=== PATIENT | female | born 1955 | race Caucasian/White ===

== ENCOUNTER 2021-05-01 16:46 | Inpatient (IN) | payer MEDICAID, SELFPAY ==
[2021-05-01 16:49] VITALS: BP 129/55; PULSE 70; RESP 17; TEMP 36.7; O2SAT 98; BMI 21.6
--- NOTE | 2021-05-01 17:40 | ED.VIS.FALL ---
HPI HPI - Fall History of Present Illness Chief Complaint: Fall Informant: patient Narrative Narrative: Brought in by EMS mechanical fall left hip injury shortly prior to arrival. Tripped over a space heater and a coffee table trying to catch her balance. No head injuries. No history of fractures. Patient has been laying on her right side for comfort. She is brought in like this on a vacuum carrier. Pain with movement of the leg. No paresthesias. No anticoagulation medicines. Patient only on thyroid medications. PFSH PFSH Medical History Hypothyroidism Tobacco use Home Medications calcium 600 mg PO DAILY 05/01/21 [History Last Taken 05/01/21] levothyroxine 50 mcg PO DAILY 05/01/21 [History Last Taken 05/01/21] Allergy/AdvReac Type Severity Reaction Status Date / Time No Known Allergies Allergy Verified 05/01/21 16:48 Family History (Updated 05/01/21 @ 21:[address] Celine Huntley MD) Mother Myasthenia gravis age 51 secondary to MG complications. Father Cancer Hx prostate CA. Surgical History S/P cholecystectomy Social History (Updated 05/01/21 @ 21:[address] Celine Huntley MD) household members: spouse and children Smoking Status: Current every day smoker tobacco type: cigarettes alcohol intake: never substance use type: does not use ROS ROS ED Constitutional Constitutional ED: Denies chills, fever(s) or sweats Eyes Eyes: Denies change in vision ENT ENT ED: Denies dysphagia or sore throat Cardiovascular Cardiovascular: Denies chest pain, leg edema, palpitations or racing heartbeat Respiratory/Chest Respiratory/Chest: Denies cough, dyspnea or dyspnea on exertion Gastrointestinal Gastrointestinal: Denies abdominal pain, diarrhea, nausea or vomiting Genitourinary Genitourinary ED: Denies dysuria, hematuria or urinary frequency Musculoskeletal Musculoskeletal: Reports other Details: Left hip pain ; Denies back pain, extremity pain or neck pain Integumentary Denies rash or wounds Neurologic Neurologic: Denies headache(s), paresthesias or weakness EXAM Physical Exam Const Vital Signs: 05/01/21 16:49 05/01/21 17:06 05/01/21 20:21 Temperature 98.0 F 98.0 F Temperature Source Oral Oral Pulse Rate 70 73 Respiratory Rate 17 18 Respiratory Effort Normal Respiratory Depth Normal Respiratory Pattern Normal Blood Pressure 129/55 H 133/63 H Blood Pressure Mean 79 86 Pulse Ox 98 73 Oxygen Delivery Method Room Air Room Air Room Air Positive well nourished and well developed Constitutional Narrative: Laying on her right side for comfort. GCS 15. General Appearance ED: well developed and NAD HEENT Reports moist mucous membranes normocephalic and atraumatic Eyes PERRL, EOMs intact bilaterally and conjunctivae normal General Eye ED: Yes normal appearance of both eyes Neck no lymphadenopathy and supple General: Negative for tenderness Chest Wall Chest: Negative for tenderness Resp normal respiratory effort and normal air movement Effort and Inspection: symmetric chest movement; Negative for respiratory distress Cardio regular rate, regular rhythm and no murmurs Peripheral Pulses: pulses 2+ throughout GI normal to inspection, nondistended, normoactive bowel sounds and non-tender Palpation: Negative for guarding or rebound tenderness present Back/Spine no CVA tenderness and no thoracic nor lumbar tenderness Extremity Extremity Narrative: Both legs slight flexed position laying on her right side. Any movement of the left leg elicits pain. Unable to evaluate for shortening or rotation due to her positioning at this time. Pulses were intact distally. No pain of the upper extremities bilaterally. General Extremety ED: Negative for edema or tenderness General Extremity: Negative for edema Neuro oriented x3 and no sensory deficits noted Sensorium / Orientation: awake and alert Skin no rashes or lesions noted and no wounds MDM MDM MDM Narrative Medical decision making narrative: Patient was taken off the vacuum splint, she is kept on the right side for position of comfort. IV will be established, will give pain medications, discussed will send for x-ray will need to lay on her back for evaluation for concerns for fracture of the left hip. Left hip x-ray reviewed by myself and read by radiology intertrochanteric fracture. Chest x-ray preop clearance obtained shows no acute process. Labs are stable treated with additional fentanyl for pain control. I did update orthopedics Dr. Martinez will plan for surgery tomorrow. Discussed with hospitalist Dr. Huntley for admission. Lab Data Attestation: I reviewed the patient's lab results. Labs: Laboratory Results - last 24 hr 05/01/21 05/01/21 05/01/21 17:58 17:58 17:58 WBC 12.6 H RBC 4.36 Hgb 14.0 Hct 41.4 MCV 95.0 MCH 32.1 H MCHC 33.8 RDW Std Deviation 47.8 H RDW Coeff of Danelle 13.5 Plt Count 293 MPV 9.5 Immature Gran % (Auto) 0.300 Neut % (Auto) 78.5 H Lymph % (Auto) 14.9 L [place] % (Auto) 4.4 Eos % (Auto) 1.2 Baso % (Auto) 0.7 Absolute Neuts (auto) 9.9 H Absolute Lymphs (auto) 1.88 Nucleated RBC % 0 PT 12.3 INR 1.0 APTT 22.9 L Sodium 140 Potassium 4.0 Chloride 107 Carbon Dioxide 29.0 Anion Gap 4 L BUN 13 Creatinine 1.03 H Estim Creat Clear Calc 48.35 Est GFR (MDRD) Af Amer 69 Est GFR (MDRD) Non-Af 57 L BUN/Creatinine Ratio 12.6 Glucose 123 H Calcium 8.6 Blood Type Antibody Screen 05/01/21 17:58 WBC RBC Hgb Hct MCV MCH MCHC RDW Std Deviation RDW Coeff of Danelle Plt Count MPV Immature Gran % (Auto) Neut % (Auto) Lymph % (Auto) [place] % (Auto) Eos % (Auto) Baso % (Auto) Absolute Neuts (auto) Absolute Lymphs (auto) Nucleated RBC % PT INR APTT Sodium Potassium Chloride Carbon Dioxide Anion Gap BUN Creatinine Estim Creat Clear Calc Est GFR (MDRD) Af Amer Est GFR (MDRD) Non-Af BUN/Creatinine Ratio Glucose Calcium Blood Type O POSITIVE Antibody Screen NEGATIVE Radiography Diagnostic Testing: Clinical Impression(s) from Imaging Studies Hip/Pelvis X-Ray 05/01/21 18:55 IMPRESSION: Left intratrochanteric fracture. No dislocation Electronically Signed: Diaz Hoyt MD at 19:29 EST , Chest X-Ray 05/01/21 19:04 IMPRESSION: There are no acute findings. Electronically Signed: Diaz Hoyt MD at 19:28 EST , EKG Initial EKG: Attestation: I personally reviewed and interpreted this EKG as follows: Comments: Sinus rate of 67, PACs noted. No ST or T wave changes. Discharge Plan Dx/Rx/DC Orders Clinical Impression: Hip fracture, left Disposition Disposition: Acute Care Hospital [facility] Discharge Date/Time: 05/01/21 20:26
[2021-05-01 18:08] LABS: Absolute Lymphocyte Count 1.88 X10^3/uL (0.83-4.51); Absolute Neutrophil Count 9.9 X10^3/uL (2.0-7.7); Basophil# 0.09 X10^3/uL; Basophil% 0.7 % (0-1); Eosinophil# 0.15 X10^3/uL; Eosinophils% 1.2 % (0-5); Hematocrit 41.4 % (37-47); Lymphocyte # 1.88 X10^3/ul (0.83-4.51); Lymphocyte % 14.9 % (19-41); Mean Corp Hgb Conc 33.8 g/dL (32-36); Mean Corpuscular Hgb 32.1 pg (27.0-32.0); Mean Platelet Vol. 9.5 fl (6.2-12.0); Monocyte# 0.55 X10^3/uL; Monocyte% 4.4 % (0-10); NRBC Flagged by Analyzer 0 % (0-5); Neutrophil # 9.88 X10^3/uL (2.7-7.7); Neutrophil % 78.5 % (47-70); Platelet Count 293 K/mm3 (150-450); RBC Distribution Width CV 13.5 % (11.6-14.6); RBC Distribution Width SD 47.8 fl (35.1-43.9); Red Blood Count 4.36 M/mm3 (4.2-5.4); White Blood Count 12.6 K/mm3 (4.4-11.0)
[2021-05-01] MEDS: fentaNYL 100 MCG/2 ML Ampul 25 MCG IV (18:13)
[2021-05-01] MEDS: Ondansetron 4 MG/2 ML Vial IV (18:13)
[2021-05-01 18:15] LABS: Prothrombin Time (Protime)PT. 12.3 SECONDS (11.7-14.9)
[2021-05-01 18:16] LABS: Partial Thromboplast Time 22.9 Seconds (24.1-36.2)
[2021-05-01 18:21] LABS: Anion Gap 4 (5-15); BUN 13 mg/dL (7-18); BUN/Creat Ratio 12.6 RATIO (10-20); Calcium,Total 8.6 mg/dL (8.5-10.1); Chloride 107 mmol/L (98-107); Creatinine, Serum 1.03 mg/dL (0.55-1.02); EST Glomerular Filtration Rate 57 mL/min (>60); Est Glom Filt Rate - Afr Amer 69 mL/min (>60); Estimated Creatinine Clearance 48.35 ml/min; Glucose 123 mg/dL (74-106); Sodium Level 140 mmol/L (136-145)
--- NOTE | 2021-05-01 18:55 | RAD_ITS ---
STUDY: X-RAY - PELVIS AND LEFT HIP REASON FOR EXAM: Female, 65 years old. Technologist Notes fall, left hip pain, images taken with patient''s leg bent, patient was unable to straighten leg due to pain injury TECHNIQUE: XR Hip Unilateral with Pelvis when performed; 2-3 Views COMPARISON: None. FINDINGS: There is a non-specific bowel gas pattern. Normal visualized soft tissue structures. There are multiple calcified phleboliths. There are degenerative changes of the lumbar spine. Normal bilateral iliac wings, sacroiliac joints and visualized sacrum. Normal bilateral superior and inferior pubic rami. Normal pubic symphysis. Normal bilateral ischial tuberosities. Normal visualized femoral head. Left intratrochanteric fracture. Medial displacement of the lesser trochanter. Normal acetabulum. Normal hip joint. RAD/HIP, UNI W/ Pelvis 2-3 Views IMPRESSION: Left intratrochanteric fracture. No dislocation Electronically Signed: Diaz Hoty MD at 19:29 EST ,
--- NOTE | 2021-05-01 19:02 | EKG12_ITS ---
Test Reason : FALL Blood Pressure : / mmHG Vent. Rate : 067 BPM Atrial Rate : 067 BPM P-R Int : 120 ms QRS Dur : 090 ms QT Int : 412 ms P-R-T Axes : 074 068 062 degrees QTc Int : 435 ms Sinus rhythm with Premature atrial complexes Otherwise normal ECG When compared with ECG of 18-JUN-2000 05:42, Premature atrial complexes are now Present T wave inversion now evident in Lateral leads Confirmed by NICHOLAS PETERSON, TIGIST ([id number]), television news video editor NANETTE BAL ([id number]) on 05/05/2021 10:02:37 A M Referred By: MONIQUE Confirmed By:RAMÍREZ PETERSON MD
--- NOTE | 2021-05-01 19:04 | RAD_ITS ---
STUDY: XR Chest 1 View 05/01/2021 6:50 PM REASON FOR EXAM: Female, 65 years old. PRE OP COMPARISON: None TECHNIQUE: XR Chest 1 View FINDINGS: There is no demonstrated pleural abnormality. Normal heart size. Normal mediastinum. Normal sherie. Prominent appearing increased interstitial lung markings. Normal visualized pulmonary arteries. There is atherosclerotic calcification of the aortic arch with tortuosity. There are diffuse degenerative changes of the visualized thoracic spine. There is degenerative osteoarthritis of the bilateral shoulders. There is no demonstrated abnormality of the visualized soft tissue structures of the upper abdomen. RAD/Chest 1 View IMPRESSION: There are no acute findings. Electronically Signed: Diaz Hoyt MD at 19:28 EST ,
[2021-05-01] MEDS: fentaNYL 100 MCG/2 ML Ampul 50 MCG IV ×2 (19:35→20:19)
[2021-05-01 20:21] VITALS: BP 133/63; PULSE 73; RESP 18; TEMP 36.7; O2SAT 73
--- NOTE | 2021-05-01 20:39 | HP.PCM.HOS_ITS ---
HPI - General General Date of Admission: 05/01/21 Date of Service: 05/01/21 Chief Complaint: Hip pain, fall. HPI Narrative The patient is a 65 y/o F w/ PMHx: Hypothyroidism, Tobacco use who presents to the [facility] ED on 05/01/21 with history of unfortunate mechanical fall, tripping over a space heater and falling over a table landing very firmly onto the left side onto her left hip with intractable pain, debility, shortening and malrotation following prompting eventual ED evaluation. Patient notes the pain is sharp, 10 out of 10 in severity, worse with any movement. Work-up in the ED included T 98, heart rate 70, BP 129/55, respiratory rate 17, 98% on room air, CBC with WC 12.6, hemoglobin 14, platelet 293 with mild left shift, unremarkable coags, BMP with BUN/creatinine 13/1.03, glucose 123 otherwise not marked appearing, type an d screen performed per ED physician, rapid Covid antigen negative, chest x-ray with no acute cardiopulmonary findings, plain film of the left hip and pelvis with a left intertrochanteric fracture with no dislocation evident, EKG with sinus rhythm with no acute evidence of ischemia. In the ED patient ministered fentanyl as well as Zofran therapy. ED physician did discuss case with orthopedic surgeon Dr. Martinez who noted intention for operative intervention in AM. [facility] Medical History Hypothyroidism Tobacco use Home Medications calcium 600 mg PO DAILY 05/01/21 [History Last Taken Unknown] levothyroxine 50 mcg PO DAILY 05/01/21 [History Last Taken Unknown] Allergy/AdvReac Type Severity Reaction Status Date / Time No Known Allergies Allergy Verified 05/01/21 16:48 Family History (Updated 05/01/21 @ 21:[address] Celine Huntley MD) Mother Myasthenia gravis age 51 secondary to MG complications. Father Cancer Hx prostate CA. Surgical History (Updated 05/01/21 @ 21:[address] Celine Huntley MD) S/P cholecystectomy Social History (Updated 05/01/21 @ 21:[address] Celine Huntley MD) household members: spouse and children Smoking Status: Current every day smoker tobacco type: cigarettes alcohol intake: never substance use type: does not use ROS ROS Narrative Admission Review of Systems: CONSTITUTIONAL: No weight loss, fever, chills, + weakness or fatigue. HEENT: Eyes: No visual loss, blurred vision, double vision or yellow sclerae. Ears, Nose, Throat: No hearing loss, sneezing, congestion, runny nose or sore throat. SKIN: No rash or itching, lesions, wounds. CARDIOVASCULAR: No chest pain, chest pressure or chest discomfort, palpitations, edema, orthopnea, syncopal events. RESPIRATORY: No shortness of breath, cough or sputum, wheezing, hemoptysis. GASTROINTESTINAL: No anorexia, nausea, vomiting or diarrhea, abdominal pain, melena, BRBPR. GENITOURINARY: No dysuria, frequency, urgency or retention. NEUROLOGICAL: No headache, dizziness, syncope, paralysis, ataxia, numbness or tingling in the extremities, focal weakness, change in bowel or bladder control, seizure. MUSCULOSKELETAL: + muscle, back pain, joint pain or stiffness. HEMATOLOGIC: No anemia, bleeding or bruising. LYMPHATICS: No enlarged nodes. No history of splenectomy. PSYCHIATRIC: No history of depression or anxiety. ENDOCRINOLOGIC: No reports of sweating, cold or heat intolerance. No polyuria or polydipsia. ALLERGIES: No history of asthma, hives, eczema or rhinitis. Vital Signs Vital Signs Vital Signs: 05/01/21 16:49 05/01/21 17:06 05/01/21 20:21 Temperature 98.0 F 98.0 F Temperature Source Oral Oral Pulse Rate 70 73 Respiratory Rate 17 18 Respiratory Effort Normal Respiratory Depth Normal Respiratory Pattern Normal Blood Pressure 129/55 H 133/63 H Blood Pressure Mean 79 86 Pulse Ox 98 73 Oxygen Delivery Method Room Air Room Air Room Air Weight Weight: 130 lb Body Mass Index (BMI) 21.6 Physical Exam Narrative Physical Examination: General: Awake, alert, oriented x 3 and cooperative, laying in the ED bed, uncomfortable appearing, rating pain to the left hip 10 out of 10. Skin: Normal color, normal turgor, no icterus, no cyanosis. HEENT: AT/NC, EOMI, PERRLA, mildly dry MM, no carotid bruits or JVD noted. Lungs: CTA bilaterally, moderate effort, mild decrease BL bases, no rales, ronchi or wheezing. Heart: Regular rate and rhythm; no gallop, rub audible. Abdomen: Soft, NTTP, ND, normal BS, no HSM. Extremities: No cyanosis, no clubbing, no edema, status post mechanical fall with left hip fracture, shortened, externally rotated, peripheral pulses intact. Neurological: Patient awake, alert, oriented as noted, cognitive function intact; pupils equally reactive to light and accommodation, cranial nerves II- XII grossly normal, limited movement of extremities especially left lower extremity given recent fall with left hip fracture, strength accordingly severely globally decreased. Psychiatric: Affect appears uncomfortable, no acute evidence of depressive or anxiety feelings. Results Lab / Micro Data Result Diagrams: 05/01/21 17:58 05/01/21 17:58 Labs: Laboratory Results - last 24 hr 05/01/21 17:58: WBC 12.6 H, RBC 4.36, Hgb 14.0, Hct 41.4, MCV 95.0, MCH 32.1 H, MCHC 33.8, RDW Std Deviation 47.8 H, RDW Coeff of Danelle 13.5, Plt Count 293, MPV 9.5, Immature Gran % (Auto) 0.300, Neut % (Auto) 78.5 H, Lymph % (Auto) 14.9 L, [place] % (Auto) 4.4, Eos % (Auto) 1.2, Baso % (Auto) 0.7, Absolute Neuts (auto) 9.9 H, Absolute Lymphs (auto) 1.88, Nucleated RBC % 0 05/01/21 17:58: PT 12.3, INR 1.0, APTT 22.9 L 05/01/21 17:58: Sodium 140, Potassium 4.0, Chloride 107, Carbon Dioxide 29.0, Anion Gap 4 L, BUN 13, Creatinine 1.03 H, Estim Creat Clear Calc 48.35, Est GFR (MDRD) Af Amer 69, Est GFR (MDRD) Non-Af 57 L, BUN/Creatinine Ratio 12.6, Glucose 123 H, Calcium 8.6 05/01/21 17:58: Blood Type O POSITIVE, Antibody Screen NEGATIVE Micro: Microbiology 05/01/21 19:20 Nasal Secretion SARS-CoV-2 Antigen (Rapid) - Final Radiology Impression Hip/Pelvis X-Ray 05/01/21 18:55 IMPRESSION: Left intratrochanteric fracture. No dislocation Electronically Signed: Diaz Hoyt MD at 19:29 EST , Chest X-Ray 05/01/21 19:04 IMPRESSION: There are no acute findings. Electronically Signed: Diaz Hoyt MD at 19:28 EST , Assessment & Plan Assessment/Plan (1) Hip fracture, left: QUALIFIERS: Encounter type: initial encounter Fracture type: closed Qualified Code(s): S72.002A - Fracture of unspecified part of neck of left femur, initial encounter for closed fracture PLAN: The patient is a 65 y/o F w/ PMHx: Hypothyroidism, Tobacco use who presents to the [facility] ED on 05/01/21 with history of unfortunate mechanical fall, tripping over a space heater and falling over a table landing very firmly onto the left side onto her left hip with intractable pain, debility, shortening and malrotation following prompting eventual ED evaluation. #1. General debility, L hip pain s/p mechanical fall w/ left intertrochanteric hip fracture: Orthopedic surgery consulted from ED. Will admit to MS, maintain NPO after midnight, continue gentle IVFs, cardenas placement, monitor I/Os, frequent positioning, fall precautions, pain, anti-emetic regimen. PT/OT following operative intervention. CM consulted for discharge planning. Per NSQIP surgical risk calculator patient is low risk and agree with proceeding to operative intervention in a.m. #2. Hypothyroidism: Continue home synthroid regimen. #3. Tobacco Abuse: Encouraged cessation, inpatient consultation per RT, NR if desired. #4. DVT prophylaxis: SCDs, defer chemoprophylaxis for planned a.m. orthopedic s urgery. #5. CODE STATUS: Patient healthcare power of supervisor wash house is her and secondary is her son, living will in place. Full code. Charges/Coding Visit Charges Inpatient E&M: 82843 Init Hosp L2
[2021-05-01 20:44] VITALS: BMI 21.1
[2021-05-01] MEDS: Morphine 2 MG/ML Syringe IV ×2 (21:23→22:10)
[2021-05-01] MEDS: 0.9% Normal Saline 1,000 ML 100 ML IV (21:23)
[2021-05-01 21:45] VITALS: BP 137/65; PULSE 65; RESP 20; TEMP 36.3; O2SAT 96
--- NOTE | 2021-05-01 22:50 | PCS.PANDOC ---
PANDEMIC DOCUMENTATION INITIATED: Date: 05/01/21 Time: 2199
[2021-05-01 22:52] VITALS: O2SAT 96
[2021-05-02] VITALS (13 sets, daily range): BP systolic 93–136; BP diastolic 49–70; PULSE 60–84; RESP 14–18; TEMP 36.2–36.6; O2SAT 89–99; BMI 21.1
[2021-05-02] MEDS: Morphine 2 MG/ML Syringe IV ×3 (03:27→10:57)
[2021-05-02 05:55] LABS: Absolute Lymphocyte Count 1.59 X10^3/uL (0.83-4.51); Absolute Neutrophil Count 10.3 X10^3/uL (2.0-7.7); Basophil# 0.06 X10^3/uL; Basophil% 0.5 % (0-1); Eosinophil# 0.01 X10^3/uL; Eosinophils% 0.1 % (0-5); Hematocrit 43.2 % (37-47); Hemoglobin 14.3 g/dL (12.0-15.0); Lymphocyte # 1.59 X10^3/ul (0.83-4.51); Lymphocyte % 12.6 % (19-41); Mean Corp Hgb Conc 33.1 g/dL (32-36); Mean Corpuscular Hgb 31.3 pg (27.0-32.0); Mean Corpuscular Volume 94.5 fL (81-99); Mean Platelet Vol. 9.5 fl (6.2-12.0); Monocyte# 0.64 X10^3/uL; Monocyte% 5.1 % (0-10); NRBC Flagged by Analyzer 0 % (0-5); Neutrophil # 10.27 X10^3/uL (2.7-7.7); Neutrophil % 81.4 % (47-70); Platelet Count 270 K/mm3 (150-450); RBC Distribution Width CV 13.4 % (11.6-14.6); RBC Distribution Width SD 47.5 fl (35.1-43.9); Red Blood Count 4.57 M/mm3 (4.2-5.4); White Blood Count 12.6 K/mm3 (4.4-11.0)
[2021-05-02 06:41] LABS: ALB/GLOB Ratio 1.1 RATIO (0.9-2.4); AST(SGOT) 22 U/L (15-37); Alanine Aminotransfer ALT/SGPT 18 U/L (13-56); Albumin, Serum 3.3 g/dL (3.2-5.0); Alkaline Phosphatase 65 U/L (45-117); Anion Gap 4 (5-15); BUN 10 mg/dL (7-18); BUN/Creat Ratio 12.6 RATIO (10-20); Calcium,Total 8.3 mg/dL (8.5-10.1); Chloride 110 mmol/L (98-107); Creatinine, Serum 0.79 mg/dL (0.55-1.02); EST Glomerular Filtration Rate 77 mL/min (>60); Est Glom Filt Rate - Afr Amer 93 mL/min (>60); Globulin 2.9 g/dL (2.2-4.2); Glucose 113 mg/dL (74-106); Potassium 4.1 mmol/L (3.5-5.1); Protein, Total 6.2 g/dL (6.4-8.2); Sodium Level 138 mmol/L (136-145)
[2021-05-02] MEDS: 0.9% Normal Saline 1,000 ML 100 ML IV ×2 (07:26→18:39)
[2021-05-02] MEDS: 0.9% Saline Lock 10 ML Syringe IV ×2 (07:48→22:09)
--- NOTE | 2021-05-02 07:52 | PN.HOSP_ITS ---
Subjective Subjective Follow-up for disability due to left hip fracture. Pain is 5-7?10 intensity over left hip Patient is here for elevated blood pressure not better controlled Objective Data Objective Data Vital Signs: Vital Signs Temp Pulse Resp BP Pulse Ox 98 F 65 18 132/70 H 93 05/02/21 03:22 05/02/21 03:22 05/02/21 03:22 05/02/21 03:22 05/02/21 03:22 Oxygen Delivery Method Room Air Weight: 126 lb 12.253 oz Body Mass Index (BMI) 21.1 Intake & Output: Intake and Output for Last 24 Hours 04/30/21 05/01/21 05/02/21 23:59 23:59 23:59 Intake Total 1000 / 1000 Output Total 250 / 250 Balance 750 / 750 Lab / Micro Data Result Diagrams: 05/02/21 05:43 05/02/21 05:43 Labs: Laboratory Results - last 24 hr 05/01/21 17:58: WBC 12.6 H, RBC 4.36, Hgb 14.0, Hct 41.4, MCV 95.0, MCH 32.1 H, MCHC 33.8, RDW Std Deviation 47.8 H, RDW Coeff of Danelle 13.5, Plt Count 293, MPV 9.5, Immature Gran % (Auto) 0.300, Neut % (Auto) 78.5 H, Lymph % (Auto) 14.9 L, [place] % (Auto) 4.4, Eos % (Auto) 1.2, Baso % (Auto) 0.7, Absolute Neuts (auto) 9.9 H, Absolute Lymphs (auto) 1.88, Nucleated RBC % 0 05/01/21 17:58: PT 12.3, INR 1.0, APTT 22.9 L 05/01/21 17:58: Sodium 140, Potassium 4.0, Chloride 107, Carbon Dioxide 29.0, Anion Gap 4 L, BUN 13, Creatinine 1.03 H, Estim Creat Clear Calc 48.35, Est GFR (MDRD) Af Amer 69, Est GFR (MDRD) Non-Af 57 L, BUN/Creatinine Ratio 12.6, Glucose 123 H, Calcium 8.6 05/01/21 17:58: Blood Type O POSITIVE, Antibody Screen NEGATIVE 05/02/21 05:43: WBC 12.6 H, RBC 4.57, Hgb 14.3, Hct 43.2, MCV 94.5, MCH 31.3, MCHC 33.1, RDW Std Deviation 47.5 H, RDW Coeff of Danelle 13.4, Plt Count 270, MPV 9.5, Immature Gran % (Auto) 0.300, Neut % (Auto) 81.4 H, Lymph % (Auto) 12.6 L, [place] % (Auto) 5.1, Eos % (Auto) 0.1, Baso % (Auto) 0.5, Absolute Neuts (auto) 10.3 H, Absolute Lymphs (auto) 1.59, Nucleated RBC % 0 05/02/21 05:43: Sodium 138, Potassium 4.1, Chloride 110 H, Carbon Dioxide 24.0, Anion Gap 4 L, BUN 10, Creatinine 0.79, Estim Creat Clear Calc 49.80, Est GFR (MDRD) Af Amer 93, Est GFR (MDRD) Non-Af 77, BUN/Creatinine Ratio 12.6, Glucose 113 H, Calcium 8.3 L, Total Bilirubin 0.50, AST 22, ALT 18, Alkaline Phosphatase 65, Total Protein 6.2 L, Albumin 3.3, Globulin 2.9, Albumin/Globulin Ratio 1.1 Micro: Microbiology 05/01/21 19:20 Nasal Secretion SARS-CoV-2 Antigen (Rapid) - Final Radiography Diagnostic Testing: Radiology Impression Hip/Pelvis X-Ray 05/01/21 18:55 IMPRESSION: Left intratrochanteric fracture. No dislocation Electronically Signed: Diaz Hoyt MD at 19:29 EST , Chest X-Ray 05/01/21 19:04 IMPRESSION: There are no acute findings. Electronically Signed: Diaz Hoyt MD at 19:28 EST , Physical Exam Narrative General: Alert, Oriented x3, Cooperative HEENT: Atraumatic, PERRLA, EOMI, Normocephalic Oral: No Gingival or Mucosal Lesions/ Ulcerations Neck: Supple, No JVD, Negative Carotid Bruits Lungs: Air entry equal in bilateral lung bases. No crepitation/rhonchi Cardiovascular: Regular rate, Regular Rhythm, Normal S1, Normal S2, No murmurs Abdomen: Bowel Sounds Present, Soft, Non Tender, Non-Distended : No renal angle tenderness. No suprapubic tenderness. Extremities: No edema, Capillary Refill Less than 3 Seconds Skin: No rashes, No breakdown Musculoskeletal: Left hip externally rotated. Mild tenderness over left hip joint. ROM very limited of left hip joint and not tried. Neurological: Cranial nerves II-XII grossly intact, DTR 2+/4 and Symmetrical, Neuro grossly intact Psych/Mental Status: Normal Affect, Appropriate. Assessment & Plan Assessment/Plan (1) Hip fracture, left: QUALIFIERS: Encounter type: initial encounter Fracture type: closed Qualified Code(s): S72.002A - Fracture of unspecified part of neck of left femur, initial encounter for closed fracture PLAN: The patient is a 65 y/o F multiple comorbidities was admitted with mechanical fall resulting into severe pain and left hip fracture #1. Left hip severe pain and disability due to left displaced, closed intertrochanteric hip fracture probably pathological from osteoporosis: Orthopedic surgery consulted and plan for surgery tomorrow. Probably left hip trochanteric femoral nailing. Intake and output, pain control. PT and OT. Incentive spirometry. Perioperative risk stratification: As Per NSQIP surgical risk calculator patient is low risk. #2. Hypothyroidism: Continue home synthroid regimen. Patient had goiter status post thyroidectomy. #3. Tobacco Abuse: Advised quitting tobacco. Patient does not have nicotine withdrawal symptoms. #4. DVT prophylaxis: SCDs, start pharmacological prophylaxis once hemostasis is controlled. #5. CODE STATUS: Full code. Charges/Coding Visit Charges Inpatient E&M: 88313 Subs Hosp L2
--- NOTE | 2021-05-02 10:33 | CON.PCM_ITS ---
Assessment & Plan Assessment/Plan (1) Intertrochanteric fracture of left femur: QUALIFIERS: Encounter type: initial encounter Fracture type: closed Fracture alignment: displaced Qualified Code(s): S72.142A - Displaced intertrochanteric fracture of left femur, initial encounter for closed fracture PLAN: Discussed risk benefits alternatives of surgical versus nonsurgical treatment with patient she does wish to proceed with a left hip trochanteric femoral nail we will plan to proceed today. HPI Consult Data Date of Consult: 05/02/21 HPI Narrative HPI Narrative: EMILI GOTTLIEB, is a 65 F who presents after ground-level fall s ustaining a left peritrochanteric femur fracture no other injuries PFSH Medical History Hypothyroidism Tobacco use Home Medications calcium 600 mg PO DAILY 05/01/21 [History Last Taken 05/01/21] levothyroxine 50 mcg PO DAILY 05/01/21 [History Last Taken 05/01/21] Allergy/AdvReac Type Severity Reaction Status Date / Time No Known Allergies Allergy Verified 05/01/21 16:48 Family History (Updated 05/01/21 @ 21:[address] Celine Huntley MD) Mother Myasthenia gravis age 51 secondary to MG complications. Father Cancer Hx prostate CA. Surgical History S/P cholecystectomy Social History (Updated 05/01/21 @ 21:[address] Celine Huntley MD) household members: spouse and children Smoking Status: Current every day smoker tobacco type: cigarettes alcohol intake: never substance use type: does not use Physical Exam Narrative Left hip compartments soft neurovascular intact Const alert, oriented x3 and no apparent distress Lab / Micro Data Result Diagrams: 05/02/21 05:43 05/02/21 05:43 Labs: Laboratory Results - last 24 hr 05/01/21 17:58: WBC 12.6 H, RBC 4.36, Hgb 14.0, Hct 41.4, MCV 95.0, MCH 32.1 H, MCHC 33.8, RDW Std Deviation 47.8 H, RDW Coeff of Danelle 13.5, Plt Count 293, MPV 9.5, Immature Gran % (Auto) 0.300, Neut % (Auto) 78.5 H, Lymph % (Auto) 14.9 L, [place] % (Auto) 4.4, Eos % (Auto) 1.2, Baso % (Auto) 0.7, Absolute Neuts (auto) 9.9 H, Absolute Lymphs (auto) 1.88, Nucleated RBC % 0 05/01/21 17:58: PT 12.3, INR 1.0, APTT 22.9 L 05/01/21 17:58: Sodium 140, Potassium 4.0, Chloride 107, Carbon Dioxide 29.0, Anion Gap 4 L, BUN 13, Creatinine 1.03 H, Estim Creat Clear Calc 48.35, Est GFR (MDRD) Af Amer 69, Est GFR (MDRD) Non-Af 57 L, BUN/Creatinine Ratio 12.6, Glucose 123 H, Calcium 8.6 05/01/21 17:58: Blood Type O POSITIVE, Antibody Screen NEGATIVE 05/02/21 05:43: WBC 12.6 H, RBC 4.57, Hgb 14.3, Hct 43.2, MCV 94.5, MCH 31.3, MCHC 33.1, RDW Std Deviation 47.5 H, RDW Coeff of Danelle 13.4, Plt Count 270, MPV 9 .5, Immature Gran % (Auto) 0.300, Neut % (Auto) 81.4 H, Lymph % (Auto) 12.6 L, [place] % (Auto) 5.1, Eos % (Auto) 0.1, Baso % (Auto) 0.5, Absolute Neuts (auto) 10.3 H, Absolute Lymphs (auto) 1.59, Nucleated RBC % 0 05/02/21 05:43: Sodium 138, Potassium 4.1, Chloride 110 H, Carbon Dioxide 24.0, Anion Gap 4 L, BUN 10, Creatinine 0.79, Estim Creat Clear Calc 49.80, Est GFR (MDRD) Af Amer 93, Est GFR (MDRD) Non-Af 77, BUN/Creatinine Ratio 12.6, Glucose 113 H, Calcium 8.3 L, Total Bilirubin 0.50, AST 22, ALT 18, Alkaline Phosphatase 65, Total Protein 6.2 L, Albumin 3.3, Globulin 2.9, Albumin/Globulin Ratio 1.1 Micro: Microbiology 05/01/21 19:20 Nasal Secretion SARS-CoV-2 Antigen (Rapid) - Final Radiology Impression Hip/Pelvis X-Ray 05/01/21 18:55 IMPRESSION: Left intratrochanteric fracture. No dislocation Electronically Signed: Diaz Hoyt MD at 19:29 EST , Chest X-Ray 05/01/21 19:04 IMPRESSION: There are no acute findings. Electronically Signed: Diaz Hoyt MD at 19:28 EST ,
[2021-05-02] MEDS: Cefazolin 2 GM in 0.9% Normal Saline 100 ML IV (13:15)
--- NOTE | 2021-05-02 13:40 | RAD_ITS ---
STUDY: X-RAY - PELVIS AND LEFT HIP REASON FOR EXAM: Female, 65 years old. HIP NAILING TECHNIQUE: 5 intraoperative views of the pelvis and hip. COMPARISON: None. FINDINGS: Intraoperative imaging provided for open reduction and internal fixation of the left intertrochanteric fracture using intramedullary khalida fixation device and side screw device. RAD/Hip Min 2 Views (Portable) IMPRESSION: Intraoperative imaging provided for ORIF of the left intertrochanteric fracture. There is good alignment. Electronically Signed: Tiago Beasley MD at 15:34 EST ,
[2021-05-02] MEDS: Lidocaine 1%/Epi 1:200 (30ml) 30 ML AMPUL (14:35)
--- NOTE | 2021-05-02 14:50 | OP.PCM_ITS ---
Report of Operation Date of Procedure: 05/02/21 Description of Surgical Findings:: Preoperative diagnosis: [Left] hip intertrochanteric femur fracture with reverse obliquity component Postoperative diagnosis: Same Procedure: Cephalo-medullary fixation [left] hip Implants: Synthes long nail [11 mmx 360], 90 mm helical blade, [48] mm screw Anesthesia: General EBL: 50 Complications: None Condition: Stable to PACU Indication for procedure: 65-year-old female sustaining ground-level fall injury to left hip. fracture demonstrated intertrochanteric femur fracture thought initially however upon reduction in the OR reverse obliquity component was identified, risk benefits and alternatives were reviewed including risk of bleeding infection nerve, artery, bone, tissue damage, blood clot, RSD need for further surgery and continued pain. Procedure: Patient met in the preoperative holding area once again the operative extremity was identified by both patient and physician and was marked. Patient was met by anesthesia and IV was started she was brought back to the to the operating room anesthesia was started. She was then positioned on the fracture table all bony prominences were well-padded. She was then positioned with adduction internal rotation and traction and fluoroscopy was brought in to e nsure that an adequate reduction could be performed. Patient was then prepped and draped in usual sterile fashion and timeout was called to ensure the proper patient procedure and extremity were being contemplated. Fluoroscopy was used to kiran the tip of the greater trochanter and a 3 fingerbreadth incision was made 2 finger breaths proximal to the tip of the greater trochanter. Was carried carried down through the skin and subcutaneous tissue as well as the gluteal fascia. A guide pin was then inserted through the tip of the greater trochanter directed towards the level of lesser trochanter this was checked in both AP and lateral projections. An opening reamer was performed. A guide pin was bent and placed down the femoral canal to the level of the superior patella then measured this and placed the corresponding length nail after flexible reamers were used to achieve cortical chatter and achieving 1.5 mm greater than the nail was chosen . following this was the insertion of the nail the appropriate height jig was used and a triple trocar sleeve was advanced to the skin and a stab incision was made at the trocar was inserted to the level of the bone and a guidepin was placed into the femoral neck and head checked on both AP and lateral projections. This was then measured and appropriately sized helical blade was inserted the nail was locked proximally to allow dynamic co mpression, the fracture was compressed and a locking screw was placed distally using perfect southern ute technique. This was then drilled and measured under fluoroscopy and the appropriate size screw was inserted. Final AP and lateral projections were saved to the PACS system of the entire construct. the wounds were thoroughly irrigated the fascia was closed with #1 [id number] Vicryls followed by 2-0 Vicryl in the subcutaneous tissues followed by vicky in the skin. 0.5% Marcaine with epinephrine was injected into the subcutaneous tissues dressing was applied form of Xeroform 4 x 4 ABD and Ioban tape. Patient tolerated procedure well there is no intraoperative complications she was brought back to the PACU in stable condition.
[2021-05-02] MEDS: Cefazolin 1 GM/50 ML BAG IV (15:41)
[2021-05-02] MEDS: Acetaminophen 500 MG Tablet 1000 MG PO (22:07)
[2021-05-02] MEDS: oxyCODONE 5 MG Tablet PO (22:08)
[2021-05-03] MEDS: Acetaminophen 500 MG Tablet 1000 MG PO ×3 (06:30→21:00)
[2021-05-03] MEDS: Levothyroxine 50 MCG Tablet PO (06:30)
[2021-05-03] MEDS: APIXABAN 2.5 MG TABLET PO ×2 (06:30→21:00)
[2021-05-03] MEDS: oxyCODONE 5 MG Tablet PO ×4 (06:30→20:50)
[2021-05-03] MEDS: Cefazolin 1 GM/50 ML BAG IV ×2 (08:30)
[2021-05-03] MEDS: Polyethylene Glycol 3350 17 GM PACKET PO (08:30)
[2021-05-03] MEDS: Calcium (Elemental) 500 MG Tablet PO (08:30)
--- NOTE | 2021-05-03 15:53 | PN_ITS ---
DATE OF SERVICE 05/03/2021 SUBJECTIVE Follow-up for disability due to left hip fracture. Pain is 5-710 intensity over left hip Patient had Nunez catheter during surgery which was removed in the morning. Patient's spontaneously voided. Does not have chest pain or shortness of breath. Seen by orthopedic surgeon. OBJECTIVE General: Alert, Oriented x3, Cooperative HEENT: Atraumatic, PERRLA, EOMI, Normocephalic Oral: No Gingival or Mucosal Lesions/ Ulcerations Neck: Supple, No JVD, Negative Carotid Bruits Lungs: Air entry equal in bilateral lung bases. No crepitation/rhonchi Cardiovascular: Regular rate, Regular Rhythm, Normal S1, Normal S2, No murmurs Abdomen: Bowel Sounds Present, Soft, Non Tender, Non-Distended : No renal angle tenderness. No suprapubic tenderness. Extremities: No edema, Capillary Refill Less than 3 Seconds Skin: Left hip surgical dressing is dry. Mild hematoma but controlled Musculoskeletal: Mild expected tenderness over left hip joint after surgery. ROM very limited of left hip. Neurological: Cranial nerves II-XII grossly intact, DTR 2+/4 and Symmetrical, Neuro grossly intact Psych/Mental Status: Normal Affect, Appropriate ASSESSMENT/PLAN The patient is a 65 y/o F multiple comorbidities was admitted with mechanical fall resulting into severe pain and left hip fracture #1. Left hip severe pain and disability due to left displaced, closed intertrochanteric hip fracture probably pathological from osteoporosis: Orthopedic surgery consulted and plan for surgery tomorrow. Probably left hip trochanteric femoral nailing. Intake and output, pain control. PT and OT. Incentive spirometry.Perioperative risk stratification: As Per NSQIP surgical risk calculator patient is low risk. 05/03: Postop day 1. Small hematoma. Follow-up by orthopedic surgeon appreciated. Start Xarelto for VT prophylaxis after 36 hours. Monitor CBC. Monitor labs. #2. Hypothyroidism: Continue home synthroid regimen. Patient had goiter status post thyroidectomy. #3. Tobacco Abuse: Advised quitting tobacco. Patient does not have nicotine withdrawal symptoms. #4. DVT prophylaxis: SCDs, hold for SBP less than 130 mmHg. #5. CODE STATUS: Full code.
[2021-05-03 19:03] LABS: Anion Gap 5 (5-15); BUN 10 mg/dL (7-18); BUN/Creat Ratio 15.1 RATIO (10-20); Calcium,Total 7.9 mg/dL (8.5-10.1); Chloride 109 mmol/L (98-107); Creatinine, Serum 0.66 mg/dL (0.55-1.02); EST Glomerular Filtration Rate 95 mL/min (>60); Est Glom Filt Rate - Afr Amer 115 mL/min (>60); Glucose 106 mg/dL (74-106); Potassium 4.2 mmol/L (3.5-5.1); Sodium Level 139 mmol/L (136-145)
[2021-05-03 20:50] VITALS: BMI 21.1
[2021-05-03 22:05] LABS: Absolute Neutrophil Count 8.9 X10^3/uL (2.0-7.7); Basophil# 0.03 X10^3/uL; Basophil% 0.3 % (0-1); Hematocrit 34.3 % (37-47); Hemoglobin 11.3 g/dL (12.0-15.0); Lymphocyte % 11.6 % (19-41); Mean Corp Hgb Conc 32.9 g/dL (32-36); Mean Corpuscular Hgb 31.4 pg (27.0-32.0); Mean Corpuscular Volume 95.3 fL (81-99); Mean Platelet Vol. 10.3 fl (6.2-12.0); Monocyte# 0.92 X10^3/uL; Monocyte% 8.2 % (0-10); NRBC Flagged by Analyzer 0 % (0-5); Neutrophil # 8.91 X10^3/uL (2.7-7.7); Neutrophil % 79.4 % (47-70); Platelet Count 227 K/mm3 (150-450); RBC Distribution Width CV 13.5 % (11.6-14.6); RBC Distribution Width SD 47.8 fl (35.1-43.9); White Blood Count 11.2 K/mm3 (4.4-11.0)
[2021-05-04 02:00] VITALS: BP 116/62; PULSE 79; RESP 18; TEMP 37.1; O2SAT 93
[2021-05-04] MEDS: oxyCODONE 5 MG Tablet PO ×2 (06:10→14:03)
[2021-05-04] MEDS: Acetaminophen 500 MG Tablet 1000 MG PO ×2 (06:10→14:03)
[2021-05-04] MEDS: Levothyroxine 50 MCG Tablet PO (06:11)
[2021-05-04 06:48] LABS: Absolute Lymphocyte Count 1.46 X10^3/uL (0.83-4.51); Absolute Neutrophil Count 6.5 X10^3/uL (2.0-7.7); Basophil# 0.07 X10^3/uL; Basophil% 0.8 % (0-1); Eosinophil# 0.11 X10^3/uL; Eosinophils% 1.3 % (0-5); Hematocrit 32.1 % (37-47); Hemoglobin 10.7 g/dL (12.0-15.0); Lymphocyte # 1.46 X10^3/ul (0.83-4.51); Lymphocyte % 16.7 % (19-41); Mean Corp Hgb Conc 33.3 g/dL (32-36); Mean Corpuscular Hgb 31.6 pg (27.0-32.0); Mean Corpuscular Volume 94.7 fL (81-99); Mean Platelet Vol. 10.5 fl (6.2-12.0); Monocyte# 0.58 X10^3/uL; Monocyte% 6.6 % (0-10); NRBC Flagged by Analyzer 0 % (0-5); Neutrophil # 6.48 X10^3/uL (2.7-7.7); Neutrophil % 74.1 % (47-70); Platelet Count 234 K/mm3 (150-450); RBC Distribution Width CV 13.5 % (11.6-14.6); RBC Distribution Width SD 46.6 fl (35.1-43.9); Red Blood Count 3.39 M/mm3 (4.2-5.4); White Blood Count 8.7 K/mm3 (4.4-11.0)
[2021-05-04 07:31] LABS: Anion Gap 7 (5-15); BUN 9 mg/dL (7-18); BUN/Creat Ratio 15.8 RATIO (10-20); Calcium,Total 8.1 mg/dL (8.5-10.1); Chloride 107 mmol/L (98-107); Creatinine, Serum 0.57 mg/dL (0.55-1.02); EST Glomerular Filtration Rate 112 mL/min (>60); Est Glom Filt Rate - Afr Amer 136 mL/min (>60); Glucose 93 mg/dL (74-106); Potassium 3.6 mmol/L (3.5-5.1); Sodium Level 139 mmol/L (136-145)
--- NOTE | 2021-05-04 07:48 | CPS ---
started by nursing
--- NOTE | 2021-05-04 08:56 | PCM.DC ---
Discharge Instructions Diet Discharge Diet: No restrictions Activity Discharge Activity: Return to Normal Activity and May Not Drive Weight Bearing Status: Weight bearing as tolerated Dressing / Incision Call your doctor if you observe: Coldness, Increased Pain, Numbness or Tingling, Change in Color, Inability to urinate, Inability to have a bowel movement, Shortness of breath, Dizziness, Fainting spells, Swelling in the ankles, Chest pain, Prolonged hiccupping, Increased palpitations (irregular heartbeat), Calf discomfort and Uncontrolled pain Follow Up Care Test Results: Test results from this visit will be discussed in further detail at your follow-up appointment, if applicable. Discharge Plan Admission Admit Date/Time: 05/01/21 20:39 Primary Reason for Your Visit: acute left hip fracture Attending Provider: Artemio Augustine Primary Care Provider: Charo Kaiser Consulting Providers: Regis Martinez Discharge Orders/Prescriptions Prescriptions: New Eliquis 2.5 mg tablet 2.5 mg PO BID Qty: 70 RF: 0 Continued calcium 600 mg Capsule 600 mg PO DAILY RF: 0 levothyroxine 50 mcg tablet 50 mcg PO DAILY RF: 0 Referrals / Follow Up: Charo Kaiser MD [Primary Care Provider] - Regis Martinez DO [STAFF PHYSICIAN] - Within 2 Weeks (call office for follow up in 2 weeks) Disposition Disposition (needs filled in before D/C Order can be placed): Home Health Service
--- NOTE | 2021-05-04 09:01 | PCM.DC.SUM ---
Providers Date of Admission: 05/01/21 Date of Discharge: 05/04/21 Primary Care Physician: Dr. Charo Kaiser MD Consultations 05/01/21 20:43 Consult: Orthopedics Routine Consulting Provider: Regis Martinez Reason for Consult: Hip fracture EMERGENT Consult: No MD Notified: Yes Date Notified: 05/01/21 Time Notified: 20:41 Method of Notification: called per ED. Reason For Visit: FALL, HIP FRACTURE Diagnosis Discharge Diagnosis (1) Hip fracture, left: Status: Acute Code(s): S72.002A - Fracture of unspecified part of neck of left femur, initial encounter for closed fracture Qualifiers: Encounter type: initial encounter Fracture type: closed Qualified Code(s): S72.002A - Fracture of unspecified part of neck of left femur, initial encounter for closed fracture (2) Intertrochanteric fracture of left femur: Status: Acute Code(s): S72.142A - Displaced intertrochanteric fracture of left femur, initial encounter for closed fracture Qualifiers: Encounter type: initial encounter Fracture alignment: displaced Fracture type: closed Qualified Code(s): S72.142A - Displaced intertrochanteric fracture of left femur, initial encounter for closed fracture Medications at Discharge Home Medications calcium 600 mg PO DAILY 05/01/21 levothyroxine 50 mcg PO DAILY 05/01/21 apixaban [Eliquis] 2.5 mg PO BID #70 tab 05/04/21 ascorbic acid (vitamin C) 500 mg PO DAILY #30 tab 05/04/21 ferrous sulfate 325 mg PO QODAY #30 tab 05/04/21 oxycodone 5 mg PO Q4H PRN PRN 3 Days #10 tab 05/04/21 Hospital Course Summary of Care Provided Hospital Course: The patient is a 65 y/o F multiple comorbidities was admitted with mechanical fall resulting into severe pain and left hip fracture #1. Left hip severe pain and disability due to left displaced, closed intertrochanteric hip fracture probably pathological from osteoporosis: Orthopedic surgery consulted and plan for surgery tomorrow. Probably left hip trochanteric femoral nailing. Intake and output, pain control. PT and OT. Incentive spirometry.Perioperative risk stratification: As Per NSQIP surgical risk calculator patient is low risk. 05/04: Postop day 2. Small hematoma, nontender nonexpansile. Hemoglobin did not drop significantly to require PRBC transfusion although her baseline is around 14 g% and dropped to 10.7. Patient is discharged on Eliquis 2.5 mg twice daily for 35 days along with ferrous sulfate and vitamin C. Discharge plan discussed with orthopedic surgeon Dr. Martinez. Initial prescription for oxycodone 5 mg given for 10 tablets and he will provide more oxycodone tablets on Wednesday. Follow-up with him in 2 weeks. #2. Hypothyroidism: Continue home synthroid regimen. Patient had goiter status post thyroidectomy. #3. Tobacco Abuse: Advised quitting tobacco. Patient does not have nicotine withdrawal symptoms. #4. DVT prophylaxis: SCDs, hold for SBP less than 130 mmHg. #5. CODE STATUS: Full code. Discharge medication reconciliation done. Discharge follow-up instructions completed. Discharge process discussed with the patient and all questions were answered to patient's satisfaction. Total time spent, exact 35 minutes on discharge meds reconciliation, examination, coordination of care with nurses and ancillary staff, discussion with orthopedic surgeon, review of imaging and blood test and discussion with the patient on follow-up instructions Physical Exam Narrative Seen and examined. H&H is 10.7/32.1. As per orthopedic surgeon patient had mild hematoma but is controlled not expanding or progressive. Patient had cephalomedullary fixation with nail is growing on 05/02. General: Alert, Oriented x3, Cooperative HEENT: Atraumatic, PERRLA, EOMI, Normocephalic Oral: No Gingival or Mucosal Lesions/ Ulcerations Neck: Supple, No JVD, Negative Carotid Bruits Lungs: Air entry equal in bilateral lung bases. No crepitation/rhonchi Cardiovascular: Regular rate, Regular Rhythm, Normal S1, Normal S2, No murmurs Abdomen: Bowel Sounds Present, Soft, Non Tender, Non-Distended : No renal angle tenderness. No suprapubic tenderness. Extremities: No edema, Capillary Refill Less than 3 Seconds Skin: Surgical dressing is dry. Mild, nontender, small hematoma beneath i the surgical dressing. Musculoskeletal: Left hip externally rotated. Status post left hip surgery Neurological: Cranial nerves II-XII grossly intact, DTR 2+/4 and Symmetrical, Neuro grossly intact Psych/Mental Status: Normal Affect, Appropriate. Weight / BMI Weight Weight: 126 lb 12.253 oz Body Mass Index (BMI) 21.1 ABG / Lab / Microbiology Data Result Diagrams: 05/04/21 05:33 05/04/21 05:33 Laboratory: Laboratory Results - last 24 hr 05/03/21 05:35: WBC 11.2 H, RBC 3.60 L, Hgb 11.3 L, Hct 34.3 L, MCV 95.3, MCH 31.4, MCHC 32.9, RDW Std Deviation 47.8 H, RDW Coeff of Danelle 13.5, Plt Count 227, MPV 10.3, Immature Gran % (Auto) 0.500, Neut % (Auto) 79.4 H, Lymph % (Auto) 11.6 L, [place] % (Auto) 8.2, Eos % (Auto) 0.0, Baso % (Auto) 0.3, Absolute Neuts (auto) 8.9 H, Absolute Lymphs (auto) 1.30, Nucleated RBC % 0 05/03/21 05:35: Sodium 139, Potassium 4.2, Chloride 109 H, Carbon Dioxide 25.0, Anion Gap 5, BUN 10, Creatinine 0.66, Estim Creat Clear Calc 49.80, Est GFR (MDRD) Af Amer 115, Est GFR (MDRD) Non-Af 95, BUN/Creatinine Ratio 15.1, Glucose 106, Calcium 7.9 L 05/04/21 05:33: WBC 8.7, RBC 3.39 L, Hgb 10.7 L, Hct 32.1 L, MCV 94.7, MCH 31.6, MCHC 33.3, RDW Std Deviation 46.6 H, RDW Coeff of Danelle 13.5, Plt Count 234, MPV 10.5, Immature Gran % (Auto) 0.500, Neut % (Auto) 74.1 H, Lymph % (Auto) 16.7 L, [place] % (Auto) 6.6, Eos % (Auto) 1.3, Baso % (Auto) 0.8, Absolute Neuts (auto) 6.5, Absolute Lymphs (auto) 1.46, Nucleated RBC % 0 05/04/21 05:33: Sodium 139, Potassium 3.6, Chloride 107, Carbon Dioxide 25.0, Anion Gap 7, BUN 9, Creatinine 0.57, Estim Creat Clear Calc 49.80, Est GFR (MDRD) Af Amer 136, Est GFR (MDRD) Non-Af 112, BUN/Creatinine Ratio 15.8, Glucose 93, Calcium 8.1 L Microbiology: Microbiology 05/01/21 19:20 Nasal Secretion SARS-CoV-2 Antigen (Rapid) - Final D/C Instructions Discharge Diet: No restrictions Weight Bearing Status: Weight bearing as tolerated Call your doctor if you observe: Coldness, Increased Pain, Numbness or Tingling, Change in Color, Inability to urinate, Inability to have a bowel movement, Shortness of breath, Dizziness, Fainting spells, Swelling in the ankles, Chest pain, Prolonged hiccupping, Increased palpitations (irregular heartbeat), Calf discomfort and Uncontrolled pain Meaningful Use Info Meaningful Use Diagnoses (Choose all that apply): None applicable Discharge Plan Admission Admit Date/Time: 05/01/21 20:39 Primary Reason for Your Visit: acute left hip fracture Attending Provider: Artemio Augustine Primary Care Provider: Charo Kaiser Consulting Providers: Regis Martinez Instructions Additional Instructions / Restrictions: Over the counter Tylenol,Take over the 500 mg to 1000 mg (1 tablet- 2 tablet) every 8 hourly as needed as needed for mild to moderate pain respectively. Advised not to take more than Tylenol 3 g in 24 hours duration. Discharge Orders/Prescriptions Prescriptions: New Eliquis 2.5 mg tablet 2.5 mg PO BID Qty: 70 RF: 0 oxycodone 5 mg Tablet 5 mg PO Q4H PRN PRN (Reason: Pain Score 6-10) 3 Days Qty: 10 RF: 0 ferrous sulfate 325 mg (65 mg iron) tablet,delayed release (DR/EC) 325 mg PO QODAY Qty: 30 RF: 0 ascorbic acid (vitamin C) 500 mg tablet 500 mg PO DAILY Qty: 30 RF: 0 Continued calcium 600 mg Capsule 600 mg PO DAILY RF: 0 levothyroxine 50 mcg tablet 50 mcg PO DAILY RF: 0 Referrals / Follow Up: Charo Kaiser MD [Primary Care Provider] - Within 2 Weeks Regis Martinez DO [STAFF PHYSICIAN] - Within 2 Weeks (call office for follow up in 2 weeks) Disposition Disposition (needs filled in before D/C Order can be placed): Home Health Service Charges/Coding Visit Charges Inpatient E&M: 00096 Disch Hosp
[2021-05-04 09:13] VITALS: BP 111/60; PULSE 84; RESP 18; TEMP 36.8; O2SAT 95
[2021-05-04] MEDS: Calcium (Elemental) 500 MG Tablet PO (09:20)
[2021-05-04] MEDS: APIXABAN 2.5 MG TABLET PO (09:20)
[2021-05-04 14:31] VITALS: BP 120/58; PULSE 86; RESP 18; TEMP 37; O2SAT 94
--- NOTE | 2021-05-06 15:41 | CASEMGMT ---
Received message from Krys ARZATE that pt was dc'd over the weekend and needs HHC set up. Number for [facility] given. TC to [facility], she is out for the day. Spoke with Yari. Pt needs HHC set up and [facility] will not take pt. Made aware this RN CM could take care of that. TC to pt home. No answer and no answering machine. All contact phone numbers are the same. TC back to Yari to make aware that this RN CM could not reach pt or dtr. Left her this RN CM phone number in case pt or dtr call back in.
== END 2021-05-04 14:59 | disposition home health service (06) | DRG 308 ==
LOC: ED 18:15 → MS3 20:43
PROVIDERS: Orthopaedic Surgery; Admitting Provider Family Medicine; Emergency Provider Emergency Medicine; PCP Internal Medicine; Visit Provider Internal Medicine
PROC: 0QS70ZZ Reposition Left Upper Femur, Open Approach (ICD-10-PCS; principal; 2021-05-02 13:30)
DX: M80.052A Age-related osteoporosis with current pathological fracture, left femur, initial encounter for fracture (principal); E03.9 Hypothyroidism, unspecified; W01.0XXA Fall on same level from slipping, tripping and stumbling without subsequent striking against object, initial encounter; R53.81 Other malaise; Z72.0 Tobacco use
CPT/HCPCS: 36415; 71045; 73502; 76000; 80048; 80053; 85025; 85610; 85730; 86850; 86900; 86901; 87426; 93005; 97110; 97116; 97162; 97166; 97535; 99285; 99406; C1713; J7030; A4216; J2405

== ENCOUNTER 2021-07-02 10:00 | Outpatient (RCR) | payer MEDICAID, SELFPAY ==
--- NOTE | 2021-05-20 09:44 | HP.PTEVAL_ITS ---
Patient's Visit Information EMILI GOTTLIEB is a 65 year old F referred to Physical Therapy by Dr. Regis Martinez DO with a diagnosis of S/P L cephalo-medullary fixation hip DOS 05-02-21. Date of Evaluation: 05/20/21 Physical Therapist: HENRIQUE Babb - Visit Plan Frequency: 2-3x /Week Duration: 6 Weeks Plan: 2-3X/ week for 6 weeks for gait training, L hip strength, L hip AROM, stairs and functional activiites with HEP. HEP: SLR (AA), QS, heels slides, supine hip abd, LAQ, AP, walk with wheeled walker - Subjective On it will be 3 weeks since she fell and had surgery on the L. She is using a standard walker. She complains of swelling in the L foot. said to take IBProf for the swelling. Pt can not lay flat since surgery. She has 2 steps in her house with no rail but they are going to put a railing up. She has a rolling walker at home and has not tried it. She reports that she is up walking around at home but not doing her exercises. She has a L hip hematoma. She is sleeping in a recliner. gave her no restrictions. - Pain L hip pain Pain Intensity (Out of 10): 5 Pain Intensity Range: 7 - Objective Gait: walks with a standard walker with L lead first and step two gait pattern. Issued pt a wheeled walker and she was able to walk with recip gait pattern with antalgic gait on the L. -2 degrees to 114 degrees L knee flexion. Hesitant and painful with heel slides at first and pt did not want to extend her knee in fear of pain. L hip flex AAROM to approx 100 degrees with slight disc omfort at end range. MMT: L knee ext 3-/4 and R 4/5, L knee flex 3+/5 and R 4/5, R hip flex 4/5 and L 3-/5, L hip abd 3-/5 and R 4/5. Pt is able to move L hip into supine and aprrox 15 degrees but struggles with adduction back to midline - Balance/Special Test Scores Lower Extremity Functional Score: 20 - Goals Goal 1:: I HEP Goal Time Frame: 4-6 Weeks Goal 2:: Be able to walk with normal gait pattern with least retrictive device Goal Time Frame: 4-6 Weeks Goal 3:: Increase L hip strength by 1/2 muscle grade (at time of the eval: L knee ext 3-/4 and R 4/5, L knee flex 3+/5 and R 4/5, R hip flex 4/5 and L 3-/5, L hip abd 3-/5 and R 4/5)/ Goal Time Frame: 4-6 Weeks Goal 4:: Be able to go up and down the stairs recip with a hand rail with no pain or hesitancy. Goal Time Frame: 4-6 Weeks - Rehabilitation Potential Rehabilitation Potential: Good - Anticipated Interventions Patient/Client Instruction: Educate patient on: Condition, Plan of Care For the Purpose of:: To decrease pain, To decrease swelling/inflammation, To increase ROM, To improve nutrient delivery to tissue, To improve muscle performance and motor function, To improve ability to perform ADL's, To increase tolerance to activity/condition/position, To improve performance and independence with ADL's, To decrease level of supervision to perform tasks, To improve ability of physical actions for home/community/work/leisure, To improve gait and locomotor functions, To improve health of tissue, To decrease soft tissue restriction, To increase flexibility/ROM, To improve balance, To improve safety with gait, To assume or resume ADL's, To reduce risk of recurrence, To improve safety, To improve health and function Therapeutic Exercise to Include: Strength training, Balance training, Postural training, Flexibilty training, Gait and locomotor training, Passive ROM, Active ROM For the Purpose of:: To decrease pain, To decrease swelling/inflammation, To increase ROM, To improve nutrient delivery to tissue, To improve muscle performance and motor function, To improve ability to perform ADL's, To increase tolerance to activity/condition/position, To improve performance and independence with ADL's, To decrease level of supervision to perform tasks, To improve ability of physical actions for home/community/work/leisure, To improve gait and locomotor functions, To improve health of tissue, To decrease soft tissue restriction, To increase flexibility/ROM, To improve endurance, To improve balance, To improve safety with gait Functional Training to Include: Gait training For the Purpose of:: To decrease pain, To increase ROM, To improve nutrient delivery to tissue, To improve muscle performance and motor function, To improve ability to perform ADL's, To increase tolerance to activity/condition/position, To improve performance and independence with ADL's, To decrease level of supervision to perform tasks, To improve ability of physical actions for h ome/community/work/leisure, To improve gait and locomotor functions, To improve health of tissue, To decrease soft tissue restriction, To increase flexibility/ROM, To improve endurance, To improve balance, To improve safety with gait Manual Therapy Techniques to Include: Passive ROM For the Purpose of:: To decrease pain, To decrease swelling/inflammation, To increase ROM, To improve nutrient delivery to tissue Thank you for the opportunity to evaluate your patient. For Medicare and Medicare HMO plans, please review the plan of care and approve it. It will need to be FAXED BACK to us at [phone] for Medicare purposes. For Medicare only, by signing this I certify the plan of care. Please let me know if there are questions or concerns regarding this plan of care. Physician Signature: Date:
--- NOTE | 2021-07-02 10:35 | HP.PTDCSUM ---
It has been my pleasure to treat EMILI GOTTLIEB referred by Dr. Regis Martinez DO, with the diagnosis of S/P L cephalo-medullary fixation hip DOS 05-02-21 for a total of 15 visit(s). Discharge Date: 07/02/21 Please see the following information for a summary of their discharge status. Subjective: Pt still not at 100% due to still limping at times. L hip pain Pain Intensity (Out of 10): 1 % Improvement: 90 Objective/Function: LE MMT: L knee ext 4/5 and R 4/5, L knee flex 34/5 and R 4/5, R hip flex 4/5 and L 4/5, L hip abd 34/5 and R 4/5. Stairs: up and down recip with hand rail for balance with slightly decreased drive through L LE ascending (improved though!!!). Gait: Walks with very very slight decreased stance time on the L LE. When walks with longer stride her stance time decreases a little more on the L Goal 1:: I HEP Goal Progress: Goal Met Goal 2:: Be able to walk with normal gait pattern with least retrictive device Goal Progress: Progressing Goal 3:: Increase L hip strength by 1/2 muscle grade (at time of the eval: L knee ext 3-/4 and R 4/5, L knee flex 3+/5 and R 4/5, R hip flex 4/5 and L 3-/5, L hip abd 3-/5 and R 4/5)/ Goal Progress: Goal Met Goal 4:: Be able to go up and down the stairs recip with a hand rail with no pain or hesitancy. Goal Progress: Goal Met Plan: DC PT to HEP to work on strength at home, gait, and stairs, and equal stance time with gait Discharge Comments: DC PT to HEP If there are questions or concerns regarding this patient's physical therapy, please feel free to call me at [phone]. Thank you for the referral of this patient. Sincerely, Joan Che, MPT Balance/Gait/Functional tests - Balance/Special Test Scores Lower Extremity Functional Score: 61
== END 2021-07-02 12:39 | disposition home or self-care (01) ==
LOC: PT 10:00
PROVIDERS: PCP Internal Medicine; Referring Provider Orthopaedic Surgery; Visit Provider Orthopaedic Surgery
DX: Z98.890 Other specified postprocedural states (principal)
CPT/HCPCS: 97110; 97161; 97530

== ENCOUNTER 2023-02-22 11:49 | Emergency (ER) | payer MEDICARE, MEDICAID, SELFPAY ==
[2023-02-22 11:51] VITALS: BP 119/68; PULSE 65; RESP 14; TEMP 36.8; O2SAT 95; BMI 24.9
[2023-02-22] MEDS: Gelfoam 12-7 MM Sponge (1) 1 EACH TOPICAL (12:13)
[2023-02-22] MEDS: Diphth,Pertuss(Acell),Tet Vac 0.5 ML Vial IM (12:13)
--- NOTE | 2023-02-22 12:17 | EX.ED.GENINJ ---
HPI <JOSH Lombardo - Last Filed: 02/22/23 12:29> History of Present Illness Chief Complaint: Laceration Narrative Narrative: Patient is a 67-year-old female who presents to the emergency department with a right fifth finger injury. Patient's tetanus vaccination is unknown. Patient has a past medical history of hypothyroidism, osteoporosis. Patient was put together a [place] tree, when she was putting a tree branch into a slot, her finger got pinched. Patient had skin removed from the pad of the right fifth finger. She is here for evaluation. Patient denies any other injury. Patient is full range of motion. Unsure of last tetanus vaccination. Tetanus Immunization: Unknown PFSH <JOSH Lombardo - Last Filed: 02/22/23 12:29> PFSH Medical History Hypothyroidism Intertrochanteric fracture of left femur Tobacco use Home Medications calcium 600 mg capsule 600 mg PO DAILY supplement 05/01/21 [History Last Taken 05/01/21] levothyroxine 50 mcg tablet 50 mcg PO DAILY thyroid 05/01/21 [History Last Taken 05/01/21] ascorbic acid (vitamin C) 500 mg tablet 500 mg PO DAILY #30 tabs 05/04/21 [Rx Last Taken Unknown] ferrous sulfate 325 mg (65 mg iron) tablet,delayed release 325 mg PO QODAY #30 tabs 05/04/21 [Rx Last Taken Unknown] acetaminophen 500 mg tablet (Tylenol Extra Strength) 1,000 mg PO Q6H PRN 05/16/21 [History Last Taken Unknown] Allergy/AdvReac Type Severity Reaction Status Date / Time No Known Allergies Allergy Verified 06/13/21 10:14 Family History Mother Myasthenia gravis age 51 secondary to MG complications. Father Cancer Hx prostate CA. Surgical History S/P cholecystectomy Social History household members: spouse and children Smoking Status: Light Smoker (<10/day) alcohol intake: never substance use type: does not use ROS <JOSH Lombardo - Last Filed: 02/22/23 12:29> ROS ED ROS Narrative Constitutional: Negative for fever, chills, weight loss, weakness Eyes: Negative for vision loss, vision change, double vision ENT: Negative for any sore throat, ear pain, congestion Cardiovascular: Negative for any chest pain, tightness, palpitations Respiratory: Negative for any cough, sputum production, hemoptysis, dyspnea, dyspnea on exertion, orthopnea Gastrointestinal: Negative for any abdominal pain, nausea, vomiting, diarrhea, constipation, blood in stool, blood in vomit : Negative for any urinary frequency, dysuria, retention, blood in urine Muscle skeletal: Negative for any myalgias, arthralgias, neck pain, back pain Neurological: Negative for any headache, syncope, numbness or tingling, dizziness Skin: Negative for any rashes, lumps, itching, abrasions, lacerations. Positive for avulsion like laceration to the left fifth finger Psychiatric: Negative for any depression, anxiety, stress, suicidal ideation, homicidal ideation Hematologic: Negative for any easy bruising, excessive bruising, easy bleeding Allergies: Negative for any eczema, hives, rash EXAM <JOSH Lombardo - Last Filed: 02/22/23 12:29> Physical Exam Narrative Exam Narrative: Vital signs reviewed. Extremities: No peripheral edema, no signs of gross trauma or deformity. Active full range of motion of all extremities. Patient has a 2 cm avulsion, where she took off the top layer of skin to the pad of the distal fifth finger on the right hand. This is all above the DIP joint. There is nothing to suture here. Patient has full range of motion. Neuro: Cranial nerves II through XII intact, no focal neurological deficits. Skin: Clean dry and intact with no rash, purpura, petechiae, vesicles or pustules. Backs/flank: No CVA tenderness, no midline spinal tenderness, no deformity. Psych: Normal mood and affect. No SI, HI or acute psychosis. Const Vital Signs: 02/22/23 11:51 Temperature 98.3 F Temperature Source Temporal Pulse Rate 65 Respiratory Rate 14 Blood Pressure 119/68 Blood Pressure Mean 85 Pulse Ox 95 Oxygen Delivery Method Room Air <Dr. David Ortega DO - Last Filed: 02/22/23 15:30> Physical Exam Const Vital Signs: 02/22/23 11:51 Temperature 98.3 F Temperature Source Temporal Pulse Rate 65 Respiratory Rate 14 Blood Pressure 119/68 Blood Pressure Mean 85 Pulse Ox 95 Oxygen Delivery Method Room Air [facility] <Dante Ames NP-Juan - Last Filed: 02/22/23 12:29> [facility] Treatment and Re-Evaluation Narrative: Patient appears generally well, patient appears nontoxic, vital signs are stable. Presenting to the emergency department for avulsion like laceration to the right fifth finger. Patient will be up-to-date on her tetanus vaccination today. There is no tendon involvement. This is superficial, however there is nothing to suture. Patient will receive a Gelfoam like dressing. Patient will receive her tetanus vaccination today. Patient was given wound care instructions. All questions were answered, patient instructed to return for any worsening symptoms. <Dr. David Ortega DO - Last Filed: 02/22/23 15:30> [facility] Narrative Medical decision making narrative: Patient appears generally well, patient appears nontoxic, vital signs are stable. Presenting to the emergency department for avulsion like laceration to the right fifth finger. Patient will be up-to-date on her tetanus vaccination today. There is no tendon involvement. This is superficial, however there is nothing to suture. Patient will receive a Gelfoam like dressing. Patient will receive her tetanus vaccination today. Patient was given wound care instructions. All questions were answered, patient instructed to return for any worsening symptoms. This patient was seen with a PA/QUARANTINE INSPECTOR Individually assessed they patient including history and physical. I have reviewed everything on the chart that is available and agree with the documentation provided by the PA/QUARANTINE INSPECTOR including discussion about the assessment, treatment plan, discussion, and return precautions. Well-appearing 59-year-old female with superficial skin avulsion. No believe she needs any sutures. Gelfoam was applied and a pressure dressing. Tetanus was updated. Bleeding was well controlled. Wound care instructions and return precautions were given. Impression: 1. Skin avulsion fifth digit Discharge Plan Triage Chief Complaint: Laceration ED Midlevel Provider: Dante Ames ED Provider: David Ortega Dx/Rx/DC Orders Clinical Impression: Finger laceration, Avulsion of finger tip Instructions: ED Laceration, Hand: All Closures, ED Laceration Small or ... Prescriptions: No Action acetaminophen [Tylenol Extra Strength] 500 mg tablet 1,000 mg PO Q6H PRN calcium 600 mg Capsule 600 mg PO DAILY levothyroxine 50 mcg tablet 50 mcg PO DAILY ferrous sulfate 325 mg (65 mg iron) tablet,delayed release (DR/EC) 325 mg PO QODAY Qty: 30 0RF ascorbic acid (vitamin C) 500 mg tablet 500 mg PO DAILY Qty: 30 0RF Primary Care Provider: Charo Kaiser Referrals: Charo Kaiser MD [Primary Care Provider] - Activity Restrictions/Additional Instructions: Your tetanus vaccination was updated today. Change dressings twice a day after this initial dressings on for 24 hours. Keep clean and dry. Disposition Disposition: Home, Self Care Discharge Date/Time: 02/22/23 12:59
== END 2023-02-22 12:59 | disposition home or self-care (01) ==
LOC: ED 12:43
PROVIDERS: Emergency Provider Student in an Organized Health Care Education/Training Program; PCP Internal Medicine; Visit Provider Student in an Organized Health Care Education/Training Program
DX: S61.216A Laceration without foreign body of right little finger without damage to nail, initial encounter (principal); F17.200 Nicotine dependence, unspecified, uncomplicated; W23.2XXA Caught, crushed, jammed or pinched between a moving and stationary object, initial encounter; Y93.89 Activity, other specified; E03.9 Hypothyroidism, unspecified; Z90.49 Acquired absence of other specified parts of digestive tract; Z23 Encounter for immunization
CPT/HCPCS: 12001; 90715; 99283

== ENCOUNTER → 2024-12-12 | Outpatient (CLI) | payer MEDICARE, SELFPAY ==
--- NOTE | 2024-12-12 11:30 | CYST_PTH ---
PATIENT: EMILI GOTTLIEB LOC: [facility] U#:[id number] AGE/SX: 69/F ROOM: RE12/12/[address]: Dr. Elder Mckeon MD : [id number] BED: DIS: 12/12/2024 SPEC #: [id number] RECD: 12/12/24 15:04 STATUS: FRANSISCO REKylie #: [id number] CARMEN: 12/12/24 11:[address]: Elder Mckeon DEPT: SURGICAL PATHOLOGY RECD BY: Lan Maria ENTERED: 12/12/24 16:13 SP TYPE: Cyst OTHR DR: Dr. Charo Kaiser MD Tissues: A - CYST Procedures: Immunohistochemical Stains Surgery Specimen Level IV IHC Stain ADDITIONAL HEADER OPERATION: Removal of cyst of right upper lid PRE-OP DIAGNOSIS: Cyst lesion, right upper lid TISSUE SUBMITTED: A- Right upper eyelid cyst MICROSCOPIC DIAGNOSIS A. 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 Note: IHC performed. The lesion is CD68+ and negative for S-100 and pankeratin, supporting the diagnosis. MICROSCOPIC DESCRIPTION Slides are reviewed. All matched controls reacted appropriately. These tests were developed and their performance characteristics determined by [facility]. They may not have been cleared or approved by the U.[place]. Food and Drug Administration. The FDA has determined that such clearance or approval is not necessary.? The above immunohistochemical?markers and/or special stains have been reviewed by the Pathologist. GROSS DESCRIPTION A. Received in formalin labeled with the patient's name and date of . Designated as R upper lid is a 0.3 x 0.2 x 0.2 cm johns-yellow apparent nodule with a portion of attached skin. Entirely submitted in 1 cassette. NE 12/12/2024PT:[id number]
== END | disposition home or self-care (01) ==
LOC: LABSPEC 15:13
PROVIDERS: PCP Internal Medicine; Referring Provider Ophthalmology; Visit Provider Ophthalmology
DX: J98.4 Other disorders of lung (principal)
CPT/HCPCS: 88304; 88305; 88341; 88342